=== PATIENT | male | born 1995 | race Caucasian/White ===

== ENCOUNTER 2017-08-03 21:50 | Emergency (ER) | payer OTHER ==
[~2017-08-03] VITALS: Ht 175.3 cm; Wt 77.1 kg
[~2017-08-03 21:50] MED LIST: BENTYL 20 MG TA20 M1 PO; OMEPRAZOLE 20 M20 MG; PRILOSEC 20 MG20 MG PO; ZOFRAN ODT4 MG PO
[2017-08-03 22:28] LABS: HEMATOCRIT 44.3 % (42.0-52.0); HEMOGLOBIN 15.2 gm/dL (14.0-18.0); MCH 28.8 pg (26.0-34.0); MCHC 34.2 g/dL (28.0-37.0); MCV 84.3 fL (80.0-100.0); MPV 7.4 fl. (7.2-11.1); NUCLEATED RBCS 0 /100WBC; PLATELET COUNT* 251 thou/uL (150-400); RBC 5.26 mil/uL (4.50-6.00); RDW-CV 13.6 % (10.5-14.5); WBC 12.3 thou/uL (4.0-11.0)
[2017-08-03 22:41] LABS: CALCIUM 9.2 mg/dL (8.5-10.1); POTASSIUM 3.5 mmol/L (3.5-5.1)
[2017-08-03 22:45] LABS: ALBUMIN 4.5 g/dL (3.4-5.0); TOTAL PROTEIN 8.2 g/dL (6.4-8.2)
[2017-08-03 23:01] VITALS: BP 143/80
[2017-08-03 23:08] LABS: ABSOLUTE LYMPHOCYTES 0.7 thou/uL (0.8-5.3); ABSOLUTE MONOCYTES 0.5 thou/uL (0.0-1.2); ABSOLUTE NEUTROPHILS 11.1 thou/uL (1.6-8.1); PLATELET ESTIMATE ADEQUATE
== END 2017-08-03 23:01 | disposition home or self-care (01) ==
LOC: M.ERS 21:50
PROVIDERS: Family Medicine
DX: G43.A0 Cyclical vomiting, in migraine, not intractable (principal)